=== PATIENT | female | born 1985 | race Asian ===

== ENCOUNTER → 2024-12-18 | Outpatient (CLI) | payer BC, SELFPAY ==
[2024-12-19 16:39] LABS: BVAG Candida Negative (Negative); Bacterial Vaginosis Markers Positive (Negative); Candida glabrata Negative (Negative); Candida krusei PCR Negative (Negative); Trichomonas Negative (Negative)
== END | disposition home or self-care (01) ==
LOC: SLDO 14:20
PROVIDERS: Referring Provider Specialist; Visit Provider Specialist
DX: B37.89 Other sites of candidiasis (principal); N76.0 Acute vaginitis; A59.01 Trichomonal vulvovaginitis
CPT/HCPCS: 81514